=== PATIENT | female | born 1985 | race Caucasian/White ===

== ENCOUNTER → 2023-10-21 | Outpatient (CLI) | payer BC, SELFPAY ==
--- NOTE | 2023-10-21 13:18 | NEURO ---
NCS and/or EMG Patient Report Ordering Doctor: CECILIA Rangel DATE OF SERVICE: 10/21/23 Elisabet presents for electrodiagnostic testing of the right upper limb. She reports numbness and tingling in the arm radiating into the fingers. Symptoms been present for the past 3 months. Electrodiagnostic findings: Right median motor nerve demonstrates normal distal latency, amplitude and conduction velocity. Right ulnar motor response, including conduction across the elbow is within normal limits. Normal right median right ulnar F?wave. Prolonged right median sensory latency at the wrist. Prolonged right median palmar latency. Normal ulnar and radial sensory responses. Needle EMG testing was performed the right upper limb all muscles tested showed no evidence of denervation with normal motor unit action potentials. Electrodiagnostic impression: This is an abnormal study in the right upper limb 1. Electrodiagnostic findings suggestive of right-sided median mononeuropathy. This consistent with a mild right carpal tunnel syndrome 2. No electrodiagnostic evidence is noted for ulnar neuropathy, including cubital tunnel syndrome 3. No electrodiagnostic evidence is noted for cervical radiculopathy. Multi Select Codes Neurology Neurology Interp Codes: 13738-55 Musc test done w/n test comp (interp) and 21882-99 Nrv cndj test 7-8 studies (interp)
== END | disposition home or self-care (01) ==
LOC: PSN 12:35
PROVIDERS: PCP Nurse Practitioner Family
DX: M25.531 Pain in right wrist (principal)
CPT/HCPCS: 95886; 95910